=== PATIENT | female | born 1960 | race Caucasian/White ===

== ENCOUNTER 2017-06-01 17:02 | Emergency (ER) | payer OTHER ==
[~2017-06-01] VITALS: Ht 175.3 cm; Wt 95.0 kg
[2017-06-01 17:09] VITALS: Ht 175.3 cm; Wt 95.0 kg
--- NOTE | 2017-06-01 18:26 | ERD ---
ER Documentation Chief Complaint Date/Time DATE: 06/01/17 TIME: 18:23 Chief Complaint right wrist/arm pain since yesterday s/p slip/fall HPI Is a 56-year-old female who presents to the emergency department today complaining of right arm and right leg pain after tripping and falling over a bag at her house and landing backwards. States she has previously had a fracture in her arm as well as one in her tibia. States she has a christine in her tibia. Denies any fevers or chills. ROS All systems reviewed and are negative except as per history of present illness. Medications Home Meds Active Scripts Naproxen* (Naprosyn*) 500 Mg Tablet, 500 MG PO BID Y for PAIN AND/OR INFLAMMATION, #30 TAB Prov:BHAVESH PONCE PA-C 06/01/17 Hydrocodone/Acetaminophen ([place] 5-325 Tablet) 1 Each Tablet, 1 TAB PO Q6H Y for PAIN, #20 TAB Prov:BHAVESH PONCE PA-C 06/01/17 Allergies Allergies: Coded Allergies: Penicillins (Verified Allergy, Unknown, 06/01/17) Tetanus Vaccines and Toxoid (Verified Allergy, Unknown, 06/01/17) bee venom protein (honey bee) (Verified Allergy, Unknown, 06/01/17) erythromycin base (Verified Allergy, Unknown, 06/01/17) PMhx/Soc History of Surgery: Yes (LEG CHRISTINE PLACEMENT ) Anesthesia Reaction: No Hx Alcohol Use: Yes Hx Substance Use: No Hx Tobacco Use: No Smoking Status: Never smoker Physical Exam Vitals Vital Signs Date Time Temp Pulse Resp B/P Pulse Ox O2 Delivery O2 Flow Rate FiO2 06/01/17 17:09 98.0 98 18 144/74 98 Physical Exam Const: No acute distress Head: Atraumatic Eyes: Normal Conjunctiva ENT: Normal External Ears, Nose and Mouth. Neck: Full range of motion..~ No meningismus. Resp: Clear to auscultation bilaterally Cardio: Regular rate and rhythm, no murmurs Skin: No petechiae or rashes MSK: Right arm with no obvious deformity. Effusion over dorsal aspect of forearm and hand. Tenderness palpation right elbow, forearm, hand. Pain with full active range of motion. Pulses 2+. Distal neurovascularly intact. Right leg with no obvious deformity. No effusion. No ecchymosis. Tenderness palpation Neur: Awake and alert Psych: Normal Mood and Affect Results 24 hrs Current Medications Medications (Trade) Dose Ordered Sig/Micheal Route PRN Reason Start Time Stop Time Status Last Admin Dose Admin Acetaminophen/ Hydrocodone Bitart ([place] (5/325)) 1 tab ONCE ONCE PO 06/01/17 19:00 06/01/17 19:01 DC 06/01/17 18:56 Ketorolac Tromethamine (Toradol) 30 mg ONCE STAT IM 06/01/17 19:07 06/01/17 19:09 DC DIAGNOSTIC IMAGING REPORT Patient: MARGARET MULTANI : 1960 Age: 56 Sex: F MR #: [id number] DOS: 06/01/17 0000 Ordering MD: BHAVESH PONCE PA-C Location: [facility] Room/Bed: PROCEDURE: XR Elbow. CLINICAL INDICATION: Fall TECHNIQUE: Three views of the right elbow are available for review COMPARISON: None available FINDINGS: There is no acute osseous or articular abnormality. No evidence for fracture. The radiocapitellar and ulnohumeral articular surfaces are preserved. Minimal spurring is seen at the coronoid process. Minimal enthesopathic changes at the triceps insertion. No evidence for joint effusion or soft tissue calcifications. IMPRESSION: 1. No acute osseous abnormality. RPTAT: AA .Hector Brice MD, MD Date Time Electronically viewed and signed by .Hector Brice MD, MD on 06/01/2017 18:29 .d/ CC: BHAVESH PONCE PA-C DIAGNOSTIC IMAGING REPORT Patient: MARGARET MULTANI : 1960 Age: 56 Sex: F MR #: [id number] DOS: 06/01/17 0000 Ordering MD: BHAVESH PONCE PA-C Location: [facility] Room/Bed: PROCEDURE: XR Forearm Right CLINICAL INDICATION: Fall TECHNIQUE: Two views of the right forearm. COMPARISON: None. FINDINGS: There is a comminuted, minimally displaced intra-articular distal radial fracture, partially assessed. The proximal radius and ulna are intact. IMPRESSION: 1. Acute, comminuted minimally displaced intra-articular fracture of the distal radius. RPTAT: AA .Hector Brice MD, MD Date Time Electronically viewed and signed by .Hector Brice MD, MD on 06/01/2017 18:27 .d/ CC: BHAVESH PONCE PA-C DIAGNOSTIC IMAGING REPORT Patient: MARGARET MULTANI : 1960 Age: 56 Sex: F MR #: [id number] DOS: 06/01/17 0000 Ordering MD: BHAVESH PONCE PA-C Location: [facility] Room/Bed: PROCEDURE: XR Tibia and Fibula. CLINICAL INDICATION: Fall TECHNIQUE: Two views of the right tibia and fibula are available for review. COMPARISON: None available FINDINGS: There is an intramedullary christine at the tibia transfixing a healed post fracture form of the distal tibial diaphysis. There is also a healed distal fibular fracture noting mild post fracture deformity. Degenerative changes seen at the tibiotalar joint, although partially assessed. No acute osseous abnormality is evident. Scattered round soft tissue calcifications are present. IMPRESSION: 1. Healed distal tibial and fibular fractures, as above, noting intact hardware at the tibia. RPTAT: AA .Hector rBice MD, MD Date Time Electronically viewed and signed by .Hector Brice MD, MD on 06/01/2017 18:29 .d/ CC: BHAVESH PONCE PA-C DIAGNOSTIC IMAGING REPORT Patient: MARGARET MULTANI : 1960 Age: 56 Sex: F MR #: [id number] DOS: 06/01/17 0000 Ordering MD: BHAVESH PONCE PA-C Location: [facility] Room/Bed: PROCEDURE: XR Hand. CLINICAL INDICATION: Right hand pain TECHNIQUE: Three views of the right hand were obtained. COMPARISON: No prior studies are available for comparison. FINDINGS: There is a comminuted, minimally displaced intra-articular distal radial fracture, partially assessed. There has been prior amputation of the third distal phalanx and overlying soft tissues noting a remnant base of the third distal phalanx. The remaining osseous structures are intact. Mild degenerative changes are seen at the first CMC, MCP and IP joints. There is no radiopaque foreign body. IMPRESSION: 1. Acute, comminuted minimally displaced intra-articular fracture of the distal radius. 2. Remote, partial amputation of the third distal phalanx. RPTAT: AA .Hector Brice MD, MD Date Time Electronically viewed and signed by .Hector Brice MD, MD on 06/01/2017 18:30 .d/ CC: BHAVESH PONCE PA-C Procedures/MDM This is a 56-year-old female who presents to the emergency department today complaining of multiple areas of pain after sustaining a fall last night. On physical exam patient did have some swelling over the dorsal aspect of her forearm and hand. Patient was also complaining of right leg pain and she has previously had a christine placed in this tibia. Given patient's trauma I did obtain images. The radiology report images of the right elbow show no acute osseous abnormality. There is no evidence for fracture. There is minimal spurring seen at the coronoid process. There is no evidence for joint effusion or soft tissue calcification Images of the right forearm and hand show an acute comminuted minimally displaced intra-articular fracture of the distal radius. There are mild degenerative changes seen at the first CMC, MCP and IP joints. There is been prior amputation of the third distal phalanx and overlying soft tissues noting a remnant base of the third distal phalange Images of the right tibia show a healed distal tibia and fibular fractures hardware is intact at the tibia. There are degenerative changes seen at the tibiotalar joint although partially assessed. There are scattered rounded soft tissue calcifications present Symptoms at this time is consistent with radial fracture secondary to fall. Patient was placed in a splint. She was distal neurovascularly intact pre-and post splint application. Patient was given [place] and Toradol here in the emergency department. She will be given a prescription for [place], Naprosyn for home At this time the patient is stable for discharge and outpatient management. Patient should follow up with their PCP in the next 1-2 days for referral to human services care specialist. I have explained this to the patient.. They may return to the emergency department sooner for any persistent or worsening of symptoms. Patient understood and agreed with the plan. Departure Diagnosis: Primary Impression: Radius fracture Encounter type: initial encounter Radius location: shaft Fracture type: closed Fracture morphology: comminuted Fracture alignment: displaced Laterality: right Qualified Code: S52.351A - Closed displaced comminuted fracture of shaft of right radius, initial encounter Additional Impression: Fall Encounter type: initial encounter Qualified Code: W19.XXXA - Fall, initial encounter Condition: BHAVESH Ortiz PA-C Jun 01, 2017 18:26
--- NOTE | 2017-06-01 18:27 | RADRPT ---
PROCEDURE: XR Forearm Right CLINICAL INDICATION: Fall TECHNIQUE: Two views of the right forearm. COMPARISON: None. FINDINGS: There is a comminuted, minimally displaced intra-articular distal radial fracture, partially assesse d. The proximal radius and ulna are intact. IMPRESSION: 1. Acute, comminuted minimally displaced intra-articular fracture of the distal radius. RPTAT: AA .Hector Brice MD, MD Date Time Electronically viewed and signed by .Hector Brice MD, on 06/01/2017 18:27 .d/
--- NOTE | 2017-06-01 18:29 | RADRPT ---
PROCEDURE: XR Elbow. CLINICAL INDICATION: Fall TECHNIQUE: Three views of the right elbow are available for review COMPARISON: None available FINDINGS: There is no acute osseous or articular abnormality. No evidence for fracture. The radiocapitellar and ulnohumeral articular surfaces are preserved. Minimal spurring is seen at the coronoid process. Minimal enthesopathic changes at the triceps insertion. No evidence for joint effusion or soft tis al calcifications. IMPRESSION: 1. No acute osseous abnormality. RPTAT: AA .Hector Brice MD, Date Time Electronically viewed and signed by .Hector Brice MD, on 06/01/2017 18:29 .d/
--- NOTE | 2017-06-01 18:29 | RADRPT ---
PROCEDURE: XR Tibia and Fibula. CLINICAL INDICATION: Fall TECHNIQUE: Two views of the right tibia and fibula are available for review. COMPARISON: None available FINDINGS: There is an intramedullary dionne at the tibia transfixing a healed post fracture form of the distal ti bial diaphysis. There is also a healed distal fibular fracture noting mild post fracture deformity. Degenerative changes seen at the tibiotalar joint, although partially assessed. No acute osseous abnormality is evident. Scattered round soft tissue calcifications are present. IMPRESSION: 1. Healed distal tibial and fibular fractures, as above, noting intact hardware at the tibia. RPTAT: AA .Hector Brice MD, MD Date Time Electronically viewed and signed by .Hector Brice MD, on 06/01/2017 18:29 .d/
--- NOTE | 2017-06-01 18:31 | RADRPT ---
PROCEDURE: XR Hand. CLINICAL INDICATION: Right hand pain TECHNIQUE: Three views of the right hand were obtained. COMPARISON: No prior studies are available for comparison. FINDINGS: There is a comminuted, minimally displaced intra-articular distal radial fracture, partially assesse d. There has been prior amputation of the third distal phalanx and overlying soft tissues noting a r emnant base of the third distal phalanx. The remaining osseous structures are intact. Mild degener ative changes are seen at the first CMC, MCP and IP joints. There is no radiopaque foreign body. IMPRESSION: 1. Acute, comminuted minimally displaced intra-articular fracture of the distal radius. 2. Remote, partial amputation of the third distal phalanx. RPTAT: AA .Hector Brice MD, MD Date Time Electronically viewed and signed by .Hector Brice MD, MD on 06/01/2017 18:30 .d/
[2017-06-01] MEDS ORDERED: HYDROCODONE/APAP (5/325) TAB PO ONE (19:00)
[2017-06-01] MEDS ORDERED: KETOROLAC 30 MG INJ IM STA (19:07)
[2017-06-01] MEDS ORDERED: HYDR-906 PO (19:11)
[2017-06-01] MEDS ORDERED: NAPR-260 PO (19:11)
[2017-06-01 19:38] VITALS: BP 137/81; PULSE 78; RESP 20
== END 2017-06-01 19:39 | disposition home or self-care (01) ==
LOC: FTE 17:02
DX: S52.351A Displaced comminuted fracture of shaft of radius, right arm, initial encounter for closed fracture (principal); S52.571A Other intraarticular fracture of lower end of right radius, initial encounter for closed fracture; W01.0XXA Fall on same level from slipping, tripping and stumbling without subsequent striking against object, initial encounter; Y92.009 Unspecified place in unspecified non-institutional (private) residence as the place of occurrence of the external cause
CPT/HCPCS: 29125; 73080; 73090; 73130; 73590; 96372; Z7502; J1885